=== PATIENT | male | born 1980 | race Caucasian/White ===

== ENCOUNTER → 2021-09-08 | Outpatient (CLI) | payer OTHER ==
[2014-06-04 12:34] VITALS: BP 151/82
--- NOTE | 2021-09-08 13:28 | RAD ---
Single view of the chest. 09/08/2021 1:02 PM Indication: Reason: POST-COVID (1 MONTH AGO). SHORTNESS OF BREATH. Comparison: None available Findings: There are diffuse interstitial and minimal alveolar infiltrates bilaterally. No pneumothora x or pleural effusion is seen. Heart size is within normal limits given portable technique. No acute osseous changes are identified. Lung volumes are mildly low. IMPRESSION: Mildly low lung volumes with patchy interstitial and minimal alveolar infiltrates. Findin gs consistent with provided history of Covid pneumonia. Electronically signed by: Zbigniew Bazan MD (09/08/2021 1:25 PM) [id number]
== END ==
LOC: RAD 12:40
PROVIDERS: ATTEND Internal Medicine Pulmonary Disease
DX: R91.8 Other nonspecific abnormal finding of lung field (principal); U09.9 Post COVID-19 condition, unspecified
CPT/HCPCS: 71046